=== PATIENT | female | born 1955 | race Caucasian/White ===

== ENCOUNTER 2017-06-25 08:00 | Outpatient (CLI) | payer OTHER | END 2017-06-25 08:01 | disposition home or self-care (01) | LOC: BICMAMMO 08:00 | PROVIDERS: ATTEND Internal Medicine | DX: Z12.31 Encounter for screening mammogram for malignant neoplasm of breast (principal); Z13.820 Encounter for screening for osteoporosis; Z78.0 Asymptomatic menopausal state | CPT/HCPCS: 77067; 77080; G0202 ==

== ENCOUNTER 2017-10-03 08:57 | Emergency (ER) | payer OTHER ==
[2017-10-03 09:43] LABS: Bilirubin Negative (Negative); Blood, Urine Negative (Negative); Clarity CLEAR (Clear); Glucose, Urine (Dipstick) 500 mg/dL (Negative); Leukocyte Negative (Negative); Nitrite Negative (Negative); Protein, Urine (Dipstick) Negative (Neg-Trace); Specific Gravity, Urine 1.027 (1.002-1.036); Urobilinogen 0.2 mg/dL (0.2-1.0)
[2017-10-03 09:47] LABS: #Basophils 0.1 thou/uL (0.0-0.2); #Eosinphils 0.2 thou/uL (0.0-0.7); #Lymphocytes 2.7 thou/uL (1.20-3.40); #Monocytes 0.6 thou/uL (0.11-0.59); #Neutrophils 3.1 thou/uL (1.40-6.50); %Eosinophils 3.3 % (0.0-10.0); %Lymphocytes 40.8 % (21.0-51.0); %Monocytes 8.5 % (0.0-10.0); %Neutrophils 46.4 % (42.0-75.0); Hemoglobin 13.7 g/dL (12.0-16.0); Mean Corpuscular HGB CONC 33.6 g/dL (32.0-36.0); Mean Corpuscular Hemoglobin 31.6 pg (27.0-31.0); Platelet Count 216 thou/uL (130-400); Red Blood Cell (RBC) Count 4.33 mill/uL (4.20-5.40); White Blood Cell (WBC) Count 6.6 thou/uL (4.8-10.8)
[2017-10-03] MEDS ORDERED: HYDROcodone/Acetaminophen 5/325 mg Tablet ONE (09:47)
[2017-10-03 10:09] LABS: ALT (SGPT) 13 U/L (8-55); AST (SGOT) 15 U/L (5-34); Albumin 4.1 g/dL (3.5-5.0); Alkaline Phosphatase 238 U/L (40-150); Anion Gap 13 mmol/L (10-20); BUN (Urea Nitrogen) 23 mg/dL (9.8-20.1); Bilirubin, Total 0.6 mg/dL (0.2-1.2); Calc. Creatinine Clearance 0 mL/min (70-130); Calcium 9.8 mg/dL (7.8-10.44); Carbon Dioxide 24 mmol/L (22-29); Chloride 108 mmol/L (98-107); Estimated GFR-MDRD 39; Globulin 3.3 g/dL (2.4-3.5); Glucose 227 mg/dL (70-105); Potassium 4.6 mmol/L (3.5-5.1); Protein, Total 7.4 g/dL (6.0-8.3); Sodium 140 mmol/L (136-145)
--- NOTE | 2017-10-03 10:35 | RAD ---
THREE VIEWS LUMBAR SPINE: History: Back pain. FINDINGS: AP, lateral, and coned down views of the lumbar spine obtained and demonstrate small anterior osteoph ytes at the L1, L2, L3 and L4 levels. No evidence of lumbar spine fractures or bony lesions are seen. No evidence of giovanni or retrolisthesis seen. IMPRESSION: Changes of spondylosis in the upper and mid lumbar spine. No acute abnormality seen. POS: [facility]
== END 2017-10-03 10:48 | disposition home or self-care (01) ==
LOC: ERS 08:57
DX: E11.22 Type 2 diabetes mellitus with diabetic chronic kidney disease (principal); I12.9 Hypertensive chronic kidney disease with stage 1 through stage 4 chronic kidney disease, or unspecified chronic kidney disease; N18.9 Chronic kidney disease, unspecified; E78.5 Hyperlipidemia, unspecified; Z79.82 Long term (current) use of aspirin; Z79.899 Other long term (current) drug therapy
CPT/HCPCS: 36415; 72100; 80053; 81003; 85025

== ENCOUNTER 2017-11-12 08:54 | Outpatient (CLI) | payer OTHER | END 2017-11-12 08:55 | disposition home or self-care (01) | LOC: BICRAD 08:54 | PROVIDERS: ATTEND Podiatrist | DX: M79.671 Pain in right foot (principal) ==

== ENCOUNTER 2018-06-26 08:44 | Outpatient (CLI) | payer OTHER | END 2018-06-26 08:45 | disposition home or self-care (01) | LOC: BICMAMMO 08:44 | PROVIDERS: ATTEND Internal Medicine | DX: Z12.31 Encounter for screening mammogram for malignant neoplasm of breast (principal); R92.1 Mammographic calcification found on diagnostic imaging of breast | CPT/HCPCS: 77063; 77067 ==

== ENCOUNTER 2019-08-05 11:40 | Outpatient (CLI) | payer OTHER ==
--- NOTE | 2019-08-05 13:15 | MMO ---
Bilateral MAMMO Bilat Screen [facility]. CLINICAL HISTORY: Patient is 64 years old and is seen for screening. The patient has the following family history of breast cancer: mother, at age 84, malignant (generic). The patient has no personal history of cancer. VIEWS: The views performed were: bilateral craniocaudal with tomosynthesis and bilateral mediolateral oblique with tomosynthesis. FILMS COMPARED: The present examination has been compared to prior imaging studies performed at [facility] on 12/10/2007, 08/28/2011, 06/25/2017 and 06/26/2018. This study has been interpreted with the assistance of computer-aided detection. MAMMOGRAM FINDINGS: There are scattered fibroglandular densities. There are stable benign appearing calcifications seen in both breasts. There are no suspicious masses, suspicious calcifications, or new areas of architectural distortion. IMPRESSION: THERE IS NO MAMMOGRAPHIC EVIDENCE OF MALIGNANCY. A ROUTINE FOLLOW-UP MAMMOGRAM IN 1 YEAR IS RECOMMENDED. THE RESULTS OF THIS EXAM WERE SENT TO THE PATIENT. ACR BI-RADS Category 2 - Benign finding MAMMOGRAPHY NOTE: 1. A negative mammogram report should not delay a biopsy if a dominant of clinically suspicious mass is present. 2. Approximately 10% to 15% of breast cancers are not detected by mammography. 3. Adenosis and dense breasts may obscure an underlying neoplasm. Reported by: CLARISSA MARIN MD Electonically Signed: [id number]
== END 2019-08-05 11:41 | disposition home or self-care (01) ==
LOC: BICMAMMO 11:40
PROVIDERS: ATTEND Internal Medicine
DX: Z12.31 Encounter for screening mammogram for malignant neoplasm of breast (principal); Z80.3 Family history of malignant neoplasm of breast
CPT/HCPCS: 77063; 77067

== ENCOUNTER 2019-08-08 13:59 | Outpatient (CLI) | payer OTHER ==
--- NOTE | 2019-08-08 14:28 | ULT ---
Exam: Bilateral renal ultrasound HISTORY: Hypertension. COMPARISON: None FINDINGS: Right kidney: Normal cortical echotexture. No hydronephrosis. Right kidney measurements: 9.8 x 4.2 x 4.8 cm. Left kidney: Normal cortical echotexture. No hydronephrosis. Exophytic anechoic focus emanating from the lower pole left kidney compatible with a 2.6 x 2.7 x 3.2 cm cyst. Left kidney measurements 4.9 x 10.9 x 5.0 cm. Urinary bladder: Normal mucosa. Bilateral ureteral jets are identified. IMPRESSION: No hydronephrosis.
== END 2019-08-08 14:00 | disposition home or self-care (01) ==
LOC: BICULT 13:59
PROVIDERS: ATTEND Internal Medicine Nephrology
DX: I12.9 Hypertensive chronic kidney disease with stage 1 through stage 4 chronic kidney disease, or unspecified chronic kidney disease (principal); N18.3 Chronic kidney disease, stage 3 (moderate)
CPT/HCPCS: 76770

== ENCOUNTER 2020-07-22 08:09 | Outpatient (CLI) | payer OTHER ==
[2020-07-22 15:06] LABS: #Eosinphils 0.3 10x3/uL (0.0-0.5); #Monocytes 0.6 10x3/uL (0.0-1.1); #Neutrophils 2.5 10x3/uL (1.5-8.4); %Basophils 0.7 % (0.0-2.0); %Eosinophils 4.8 % (0.0-6.0); %Lymphocytes 43.8 % (18.0-47.0); %Monocytes 9.6 % (0.0-10.0); %Neutrophils 40.9 % (40.0-75.0); Hemoglobin 14.4 g/dL (12.0-16.0); Mean Corpuscular HGB CONC 31.5 G/DL (32.0-36.0); Mean Corpuscular Hemoglobin 30.9 PG (27.0-33.0); Mean Corpuscular Volume 98.1 fl (80.0-100.0); Mean Platelet Volume 10.3 fl (7.4-10.4); Platelet Count 197 10x3/uL (130-400); RBC Distribution Width 13.2 % (11.5-14.5); Red Blood Cell (RBC) Count 4.66 10x6/uL (3.90-5.20); White Blood Cell (WBC) Count 6.1 10x3/uL (4.5-11.0)
[2020-07-22 15:12] LABS: Anion Gap 13 mmol/L (10-20); BUN (Urea Nitrogen) 27 mg/dL (9.8-20.1); Calc. Creatinine Clearance 0 mL/min (70-130); Calcium 9.4 mg/dL (7.8-10.44); Carbon Dioxide 24 mmol/L (23-31); Chloride 106 mmol/L (98-107); Glucose 257 mg/dL (80-115); Potassium 4.4 mmol/L (3.5-5.1); Sodium 139 mmol/L (136-145)
[2020-07-23 02:11] LABS: SARS-CoV-2 MS2 Positive; SARS-CoV-2 N Gene Negative; SARS-CoV-2 S Gene Negative; SARS-CoV-2 by NAA Not Detected (NotDetected); SARS-CoV-2 orf1ab Negative
== END 2020-07-22 08:10 | disposition home or self-care (01) ==
LOC: LABBT 08:09
PROVIDERS: ATTEND Orthopaedic Surgery
DX: Z01.818 Encounter for other preprocedural examination (principal); M75.101 Unspecified rotator cuff tear or rupture of right shoulder, not specified as traumatic; Z20.828 Contact with and (suspected) exposure to other viral communicable diseases
CPT/HCPCS: 80048; 85025; 87635; 93005; 93010; U0003

== ENCOUNTER 2020-07-27 06:55 | Day surgery (SDC) | payer OTHER ==
[2020-07-26 10:08] VITALS: BMI 41.0
[2020-07-27] MEDS ORDERED: Fentanyl 100 MCG/2 ML VIAL ONE ×2 (08:28→13:05)
[2020-07-27] MEDS ORDERED: Midazolam HCl 2 mg/2 ml Vial ONE ×2 (08:28→10:33)
[2020-07-27] MEDS ORDERED: Fentanyl 100 MCG/2 ML VIAL IV PRN (09:27)
[2020-07-27] MEDS ORDERED: traMADol HCl 50 MG TAB PO PRN ×2 (09:30)
[2020-07-27] MEDS ORDERED: Ropivacaine 0.2% 550 ML 550 ML NERVE BLCK SCH (09:30)
[2020-07-27] MEDS ORDERED: Promethazine HCl 25 MG/ML VIAL IM PRN (09:30)
[2020-07-27] MEDS ORDERED: Zolpidem Tartrate 5 MG TAB PO PRN (09:30)
[2020-07-27] MEDS ORDERED: Ondansetron PF 4 MG/2 ML Vial IVP PRN (09:30)
[2020-07-27] MEDS ORDERED: HYDROcodone/Acetaminophen 10/325 mg Tablet PO PRN ×2 (09:30)
[2020-07-27] MEDS ORDERED: Fentanyl 250 MCG/5 ML VIAL ONE (10:33)
[2020-07-27] MEDS ORDERED: Famotidine/PF 20 mg/2ml Vial ONE (10:33)
[2020-07-27] MEDS ORDERED: Scopolamine 1.5 mg/72 hour Patch ONE (10:34)
[2020-07-27] MEDS ORDERED: Ropivacaine 0.5% HCl/PF (150 MG/30 ML VIAL) ONE (10:45)
[2020-07-27] MEDS ORDERED: PHENYLEPHRINE-NS 100 MCG/ML 10 ML SYRINGE ONE (10:45)
[2020-07-27] MEDS ORDERED: Lidocaine 1% PF 5 ML VIAL ONE (10:45)
[2020-07-27] MEDS ORDERED: Ondansetron PF 4 MG/2 ML Vial ONE ×2 (10:45→13:30)
[2020-07-27] MEDS ORDERED: Rocuronium Bromide 10 MG/ML (10ML VIAL) ONE (10:45)
[2020-07-27] MEDS ORDERED: Dexamethasone 20 MG/5 ML VIAL ONE (10:45)
[2020-07-27] MEDS ORDERED: Esmolol 100 MG/10 ML VIAL ONE (10:45)
[2020-07-27] MEDS ORDERED: Succinylcholine 200 MG/10 ml SYRINGE FS ONE (10:45)
[2020-07-27] MEDS ORDERED: PROPOFOL 200 MG/20 ML VIAL ONE (10:45)
[2020-07-27] MEDS ORDERED: Promethazine HCl 25 MG/ML VIAL ONE ×2 (13:27→14:17)
--- NOTE | 2020-07-27 13:30 | OP ---
DATE OF PROCEDURE: 07/27/2020 PREOPERATIVE DIAGNOSIS: Rotator cuff tear, right shoulder. POSTOPERATIVE DIAGNOSIS: Rotator cuff tear, right shoulder. PROCEDURES PERFORMED: Open acromioplasty and rotator cuff repair. BUILDING OPERATOR: Honorio Uribe PA-C BLOOD LOSS: Minimal. SPECIMEN: None. DRAINS: None. COMPLICATIONS: None. The care management assistant/co-surgeon was present through the entire procedure and was responsible for providing exposure, tissue retraction and any necessary limb or tissue manipulation required to obtain necessary reduction or hardware placement. The care management assistant/co-surgeon also provided bleeding control, tissue closure, and suturing in conjunction with the primary surgeon. DESCRIPTION OF PROCEDURE: The patient placed in a beach chair position. Right arm was prepped and draped in the usual sterile fashion. I made a standard deltoid-splitting approach. An anterior-inferior acromioplasty performed, bursa tissue was excised, greatly retracted rotator cuff. I placed traction stitches and mobilized the cuff. Broke up adhesions and was able to fix the cuff at the margin of the articular cartilage. I scraped the greater tuberosity and articular cartilage margin to get bleeding bone. I placed 3 suture anchors through this area, passed 6 sutures and tied them down with a good watertight repair and reinforced with a double row repair using self punching [place]ocks. Irrigation was performed. Deltoid was repaired back to bone with #1 Ethibond suture. Subcu closed with 2-0 Vicryl, skin was closed with holly. There were no complications. Job ID: [id number]
== END 2020-07-27 18:00 | disposition home or self-care (01) ==
LOC: SDC 06:55
PROVIDERS: ATTEND Orthopaedic Surgery
PROC: 0LQ10ZZ Repair Right Shoulder Tendon, Open Approach (ICD-10-PCS; principal; 2020-07-27)
DX: S46.011A Strain of muscle(s) and tendon(s) of the rotator cuff of right shoulder, initial encounter (principal); M19.011 Primary osteoarthritis, right shoulder; I10 Essential (primary) hypertension; E11.9 Type 2 diabetes mellitus without complications; Z79.4 Long term (current) use of insulin; Z79.899 Other long term (current) drug therapy; W19.XXXA Unspecified fall, initial encounter
CPT/HCPCS: A4306; C1713; J0690; J1100; J2250; J2405; J2550; J2704; J2795; J3010; S0028

== ENCOUNTER 2021-04-07 07:46 | Outpatient (CLI) | payer BC | END 2021-04-07 07:47 | disposition home or self-care (01) | LOC: BICMAMMO 07:46 | PROVIDERS: ATTEND Obstetrics & Gynecology | DX: Z13.820 Encounter for screening for osteoporosis (principal) | CPT/HCPCS: 77080 ==

== ENCOUNTER 2022-12-31 13:04 | Observation (INO) | payer MEDICARE, OTHER ==
[2022-12-31] MEDS ORDERED: Morphine 4 MG/ML VIAL ONE (13:59)
[2022-12-31] MEDS ORDERED: Ondansetron ODT 4 MG TAB ONE ×2 (13:59→15:21)
[2022-12-31 15:02] LABS: #Basophils 0.1 thou/uL (0.0-0.2); #Eosinphils 0.1 thou/uL (0.0-0.7); #Monocytes 0.6 thou/uL (0.11-0.59); #Neutrophils 6.7 thou/uL (1.40-6.50); %Basophils 0.5 % (0.0-1.0); %Eosinophils 0.8 % (0.0-10.0); %Lymphocytes 23.3 % (21.0-51.0); %Monocytes 5.8 % (0.0-10.0); %Neutrophils 69.3 % (42.0-75.0); Hemoglobin 15.4 g/dL (12.0-16.0); Mean Corpuscular HGB CONC 31.8 g/dL (32.0-36.0); Mean Corpuscular Hemoglobin 31.6 pg (27.0-31.0); Mean Corpuscular Volume 99.2 fl (78.0-98.0); Mean Platelet Volume 10.6 fL (7.4-10.4); Platelet Count 213 10x3/uL (130-400); RBC Distribution Width 13.4 % (11.5-14.5); Red Blood Cell (RBC) Count 4.88 mill/uL (4.20-5.40); White Blood Cell (WBC) Count 9.7 10x3/uL (4.8-10.8)
[2022-12-31] MEDS ORDERED: Ondansetron PF 4 MG/2 ML Vial ONE ×2 (15:20→15:22)
[2022-12-31 15:25] LABS: ALT (SGPT) 15 U/L (8-55); AST (SGOT) 17 U/L (5-34); Albumin 4.4 g/dL (3.4-4.8); Alkaline Phosphatase 184 U/L (40-110); Anion Gap 15 mmol/L (10-20); BUN (Urea Nitrogen) 37 mg/dL (9.8-20.1); Bilirubin, Total 0.7 mg/dL (0.2-1.2); Calc. Creatinine Clearance 0 mL/min (70-130); Calcium 10.1 mg/dL (7.8-10.44); Carbon Dioxide 20 mmol/L (23-31); Chloride 111 mmol/L (98-107); Estimated GFR 33; Globulin 3.5 g/dL (2.4-3.5); Glucose 153 mg/dL (80-115); Potassium 4.5 mmol/L (3.5-5.1); Protein, Total 7.9 g/dL (5.8-8.1); Sodium 141 mmol/L (136-145)
[2022-12-31] MEDS ORDERED: HumaLOG 300 UNITS/3 ML VIAL SC PRN (15:37)
[2022-12-31] MEDS ORDERED: Dextrose 5% in Water 1,000 ML IV PRN (15:37)
[2022-12-31] MEDS ORDERED: Dextrose 50% Abboject 50 ML SYRINGE SLOW IVP PRN (15:37)
[2022-12-31] MEDS ORDERED: Glucagon 1 MG/ML KIT IM PRN (15:37)
[2022-12-31] MEDS ORDERED: TETANUS, DIPHTHERIA TOX,ADULT (TDVAX) 0.5 ML VIAL IM ONE (15:37)
[2022-12-31] MEDS ORDERED: Morphine 2 MG/ML VIAL SLOW IVP PRN (15:44)
[2022-12-31] MEDS: Ferrous Sulfate 325 MG TAB PO SCH (17:35)
[2022-12-31] MEDS: Acetaminophen 325 MG TAB PO SCH (17:36)
[2022-12-31] MEDS: traMADol HCl 50 MG TAB PO SCH (17:36)
[2022-12-31] MEDS: Cyclobenzaprine 10 MG TAB PO PRN (21:24)
[2022-12-31] MEDS: Ondansetron PF 4 MG/2 ML Vial IVP PRN (21:27)
[2022-12-31] MEDS ORDERED: Lactated Ringer's 1,000 ML IV SCH (23:59)
[2023-01-01] MEDS: traMADol HCl 50 MG TAB PO SCH ×4 (00:38→18:14)
[2023-01-01] MEDS: Acetaminophen 325 MG TAB PO SCH ×4 (00:38→18:14)
[2023-01-01] MEDS: traMADol HCl 50 MG TAB PO PRN ×2 (05:24→20:44)
[2023-01-01] MEDS: Ascorbic Acid 500 mg Chewable Tablet PO SCH (08:41)
[2023-01-01] MEDS: Ferrous Sulfate 325 MG TAB PO SCH ×2 (08:41→18:14)
[2023-01-01] MEDS: Famotidine 20 MG TAB PO SCH (08:41)
[2023-01-01] MEDS ORDERED: Vancomycin 1 GM VIAL ONE (14:43)
[2023-01-01] MEDS ORDERED: Sodium Chloride 0.9% 100 ML ONE (14:49)
[2023-01-01] MEDS ORDERED: CEFAZOLIN 2 GM VIAL ONE (14:49)
[2023-01-01] MEDS ORDERED: fentaNYL 50 mcg/mL 1 mL Vial ONE ×5 (14:57→17:22)
[2023-01-01] MEDS ORDERED: Lidocaine 1% PF 5 ML VIAL ONE (15:17)
[2023-01-01] MEDS ORDERED: GLYCOPYRROLATE/PF 0.2 MG/ML VIAL ONE (15:17)
[2023-01-01] MEDS ORDERED: Rocuronium Bromide 10 MG/ML (10ML VIAL) ONE (15:17)
[2023-01-01] MEDS ORDERED: PROPOFOL 200 MG/20 ML VIAL ONE (15:17)
[2023-01-01] MEDS ORDERED: Ondansetron PF 4 MG/2 ML Vial ONE (15:17)
[2023-01-01] MEDS ORDERED: NEOSTIGMINE 3 MG/3 ML SYR 3 MG/3 ML SYRINGE ONE (15:17)
[2023-01-01] MEDS ORDERED: SUGAMMADEX SODIUM 200 MG/2 ML VIAL ONE (16:19)
[2023-01-01] MEDS ORDERED: Promethazine HCl 25 MG/ML VIAL IM PRN (16:32)
[2023-01-01] MEDS ORDERED: Ondansetron HCl/PF 4 MG/2 ML Vial IVP PRN (16:32)
[2023-01-01] MEDS: Cyclobenzaprine 10 MG TAB PO PRN (20:44)
[2023-01-01] MEDS: Ondansetron PF 4 MG/2 ML Vial IVP PRN (20:44)
[2023-01-02] MEDS: traMADol HCl 50 MG TAB PO SCH ×3 (00:49→11:46)
[2023-01-02] MEDS: Acetaminophen 325 MG TAB PO SCH ×3 (00:51→11:45)
[2023-01-02 06:26] LABS: #Neutrophils 6.6 thou/uL (1.40-6.50); %Basophils 0.3 % (0.0-1.0); %Eosinophils 0.4 % (0.0-10.0); %Lymphocytes 22.6 % (21.0-51.0); %Monocytes 10.1 % (0.0-10.0); %Neutrophils 66.4 % (42.0-75.0); Hemoglobin 13.7 g/dL (12.0-16.0); Mean Corpuscular HGB CONC 31.7 g/dL (32.0-36.0); Mean Corpuscular Hemoglobin 31.1 pg (27.0-31.0); Mean Corpuscular Volume 98.2 fl (78.0-98.0); Mean Platelet Volume 10.8 fL (7.4-10.4); Platelet Count 167 10x3/uL (130-400); RBC Distribution Width 13.3 % (11.5-14.5); White Blood Cell (WBC) Count 9.9 10x3/uL (4.8-10.8)
[2023-01-02 06:52] LABS: Anion Gap 10 mmol/L (10-20); BUN (Urea Nitrogen) 24 mg/dL (9.8-20.1); Calc. Creatinine Clearance 77 mL/min (70-130); Calcium 9.4 mg/dL (7.8-10.44); Carbon Dioxide 23 mmol/L (23-31); Chloride 111 mmol/L (98-107); Estimated GFR 41; Glucose 98 mg/dL (80-115); Magnesium 1.8 mg/dL (1.6-2.6); Phosphorus 2.3 mg/dL (2.3-4.7); Potassium 4.1 mmol/L (3.5-5.1); Sodium 140 mmol/L (136-145)
[2023-01-02 08:05] VITALS: TEMP 98.1
[2023-01-02] MEDS: Ferrous Sulfate 325 MG TAB PO SCH (09:16)
[2023-01-02] MEDS: Famotidine 20 MG TAB PO SCH (09:16)
[2023-01-02] MEDS: Ascorbic Acid 500 mg Chewable Tablet PO SCH (09:17)
[2023-01-02 12:00] VITALS: BP 141/82
== END 2023-01-02 15:15 | disposition home or self-care (01) ==
LOC: ERS 13:04 → SURG A 16:40
PROVIDERS: ADMIT Surgery; ATTEND Surgery
PROC: 0PSK06Z Reposition Right Ulna with Intramedullary Internal Fixation Device, Open Approach (ICD-10-PCS; principal; 2022-12-31)
PROC: 0PSH04Z Reposition Right Radius with Internal Fixation Device, Open Approach (ICD-10-PCS; 2022-12-31)
DX: S52.121A Displaced fracture of head of right radius, initial encounter for closed fracture (principal); S52.031A Displaced fracture of olecranon process with intraarticular extension of right ulna, initial encounter for closed fracture; N18.30 Chronic kidney disease, stage 3 unspecified; I12.9 Hypertensive chronic kidney disease with stage 1 through stage 4 chronic kidney disease, or unspecified chronic kidney disease; E11.22 Type 2 diabetes mellitus with diabetic chronic kidney disease; E78.5 Hyperlipidemia, unspecified; E66.9 Obesity, unspecified; Z90.49 Acquired absence of other specified parts of digestive tract; Z79.82 Long term (current) use of aspirin; Z79.899 Other long term (current) drug therapy; Z79.4 Long term (current) use of insulin; W01.0XXA Fall on same level from slipping, tripping and stumbling without subsequent striking against object, initial encounter; Z68.41 Body mass index [BMI] 40.0-44.9, adult
CPT/HCPCS: 24665; 24685; 71045; 73060; 73070 ×2; 73090; 80048; 80053; 82962 ×2; 83735; 84100; 85025 ×2; 96376 ×2; C1713 ×2; C1769; G0378 ×4; J3010; J3490; 36415; 36416; J1815; J2270; J2405; J2704; J3370; J7120; Q0162

== ENCOUNTER 2023-02-21 07:57 | Outpatient (CLI) | payer MEDICARE ==
[2023-02-21 09:21] LABS: #Eosinphils 0.2 10x3/uL (0.0-0.5); #Monocytes 0.7 10x3/uL (0.0-1.1); %Basophils 0.6 % (0.0-2.0); %Eosinophils 2.8 % (0.0-6.0); %Lymphocytes 44.3 % (18.0-47.0); %Monocytes 9.4 % (0.0-10.0); %Neutrophils 42.8 % (40.0-75.0); Hemoglobin 14.8 g/dL (12.0-15.5); Mean Corpuscular HGB CONC 31.8 g/dL (32.0-36.0); Mean Corpuscular Hemoglobin 30.7 pg (27.0-33.0); Mean Corpuscular Volume 96.5 fl (81.6-98.3); Mean Platelet Volume 10.3 fl (7.4-10.4); Platelet Count 186 10x3/uL (150-450); RBC Distribution Width 13.8 % (11.5-14.5); Red Blood Cell (RBC) Count 4.82 10x6/uL (3.90-5.03); White Blood Cell (WBC) Count 7.1 10x3/uL (3.5-10.5)
[2023-02-21 09:28] LABS: Anion Gap 15 mmol/L (10-20); BUN (Urea Nitrogen) 28 mg/dL (9.8-20.1); Calc. Creatinine Clearance 0 mL/min (70-130); Calcium 9.2 mg/dL (7.8-10.44); Carbon Dioxide 24 mmol/L (23-31); Chloride 107 mmol/L (98-107); Estimated GFR 42; Glucose 83 mg/dL (80-115); Potassium 4.1 mmol/L (3.5-5.1); Sodium 142 mmol/L (136-145)
[2023-02-21 09:29] LABS: Prothrombin Time 10.3 sec (9.5-12.1)
== END 2023-02-21 07:58 | disposition home or self-care (01) ==
LOC: LABBT 07:57
PROVIDERS: ATTEND Orthopaedic Surgery
DX: Z01.818 Encounter for other preprocedural examination (principal); M17.11 Unilateral primary osteoarthritis, right knee
CPT/HCPCS: 80048; 85025; 85610; 87081; 93005; 93010

== ENCOUNTER 2023-02-27 05:43 | Observation (INO) | payer MEDICARE ==
[2023-02-27] MEDS ORDERED: Sodium Chloride 0.9% 100 ML ONE ×2 (05:57→06:58)
[2023-02-27] MEDS ORDERED: Tranexamic Acid 1,000 MG/10 ML VIAL ONE (05:57)
[2023-02-27] MEDS ORDERED: VANCOMYCIN 2 GRAM/500 ML BAG 2 GM in Premix Bag 1 BAG IVPB SCH (06:00)
[2023-02-27] MEDS ORDERED: Bupivacaine PF 0.5% 30 ML VIAL ONE ×2 (06:20→06:35)
[2023-02-27] MEDS ORDERED: Midazolam HCl 2 mg/2 ml Vial ONE (06:35)
[2023-02-27] MEDS ORDERED: Lidocaine 1% (PF) 30 ML VIAL ONE (06:35)
[2023-02-27] MEDS ORDERED: fentaNYL 50 mcg/mL 1 mL Vial ONE ×3 (06:35→10:09)
[2023-02-27] MEDS ORDERED: CEFAZOLIN 2 GM VIAL ONE (06:58)
[2023-02-27] MEDS ORDERED: fentaNYL PF 100 MCG/2 ML SYRINGE ONE (07:05)
[2023-02-27] MEDS ORDERED: traMADol HCl 50 MG TAB PO PRN ×2 (07:15)
[2023-02-27] MEDS ORDERED: HYDROcodone/Acetaminophen 5/325 mg Tablet PO PRN (07:15)
[2023-02-27] MEDS ORDERED: fentaNYL 50 mcg/mL 1 mL Vial SLOW IVP PRN (07:15)
[2023-02-27] MEDS ORDERED: Zolpidem Tartrate 5 MG TAB PO PRN ×2 (07:15→08:45)
[2023-02-27] MEDS ORDERED: Ropivacaine 0.2% 550 ML 550 ML NERVE BLCK SCH (07:15)
[2023-02-27] MEDS ORDERED: Promethazine HCl 25 MG/ML VIAL IM PRN ×3 (07:15→10:23)
[2023-02-27] MEDS ORDERED: Ondansetron PF 4 MG/2 ML Vial IVP PRN ×2 (07:15→08:45)
[2023-02-27] MEDS ORDERED: Metoclopramide HCl 10 MG/2 ML VIAL ONE (07:21)
[2023-02-27] MEDS ORDERED: PHENYLEPHRINE-NS 100 MCG/ML 10 ML SYRINGE ONE (07:21)
[2023-02-27] MEDS ORDERED: diphenhydrAMINE 50 MG/ML VIAL ONE (07:21)
[2023-02-27] MEDS ORDERED: Bupivacaine HCl 0.5%/Epinephrine 1:200,000/PF 30 ml Vial ONE (07:21)
[2023-02-27] MEDS ORDERED: PROPOFOL 200 MG/20 ML VIAL ONE (07:21)
[2023-02-27] MEDS ORDERED: Lidocaine 1% PF 5 ML VIAL ONE (07:21)
[2023-02-27] MEDS ORDERED: Ondansetron PF 4 MG/2 ML Vial ONE (07:21)
[2023-02-27] MEDS ORDERED: diphenhydrAMINE 25 MG CAP PO PRN (08:45)
[2023-02-27] MEDS ORDERED: HYDROcodone/Acetaminophen 10/325 mg Tablet PO PRN ×2 (08:45)
[2023-02-27] MEDS ORDERED: Acetaminophen 325 MG TAB PO PRN (08:45)
[2023-02-27] MEDS ORDERED: Meperidine HCl/PF 25 MG/ML VIAL ONE (08:47)
[2023-02-27] MEDS ORDERED: Aspirin 81 mg Enteric Coated Tablet PO SCH (09:00)
[2023-02-27] MEDS ORDERED: Non-Formulary Item 1 EACH (Magnesium Oxide [Magnesium] 400 MG Capsule) PO SCH (09:00)
[2023-02-27] MEDS ORDERED: Non-Formulary Item 1 EACH (Insulin Degludec [Tresiba Flextouch U-100] 100 UNIT/ML Insuln. SC SCH (09:00)
[2023-02-27] MEDS ORDERED: Non-Formulary Item 1 EACH (Losartan Potassium [Losartan Potassium] 50 MG Tablet) PO SCH (09:00)
[2023-02-27] MEDS ORDERED: glyBURIDE 5 MG TAB PO SCH (09:00)
[2023-02-27] MEDS ORDERED: Non-Formulary Item 1 EACH (Dapagliflozin Propanediol [Farxiga] 10 MG Tablet) PO SCH (09:00)
[2023-02-27] MEDS ORDERED: HYDROmorphone 0.5 MG/0.5 ML SYRINGE ONE ×2 (09:41→09:53)
[2023-02-27] MEDS ORDERED: Meperidine HCl/PF 25 MG/ML VIAL SLOW IVP PRN (10:23)
[2023-02-27] MEDS ORDERED: HYDROmorphone 2 MG/ML VIAL SLOW IVP PRN (10:23)
[2023-02-27] MEDS ORDERED: Ondansetron HCl/PF 4 MG/2 ML Vial IVP PRN (10:23)
[2023-02-27] MEDS: Senokot S 8.6-50 MG TAB PO SCH ×2 (10:39→21:08)
[2023-02-27] MEDS: Aspirin 81 mg Enteric Coated Tablet PO SCH ×2 (10:39→21:09)
[2023-02-27] MEDS: Calcitriol 0.25 MCG CAP PO SCH (10:40)
[2023-02-27] MEDS: Multivitamin W/ Minerals 1 TAB PO SCH (10:40)
[2023-02-27] MEDS: Sodium Chloride 0.9% 1,000 ML IV SCH ×2 (10:40→18:55)
[2023-02-27] MEDS: Atorvastatin Calcium 10 MG TAB PO SCH (10:40)
[2023-02-27] MEDS: Ferrous Gluconate 324 MG TAB PO SCH ×2 (10:41→21:09)
[2023-02-27 10:47] VITALS: BMI 43.0
[2023-02-27] MEDS: HYDROcodone/Acetaminophen 5/325 mg Tablet PO PRN ×2 (11:42→15:58)
[2023-02-27] MEDS: Ketorolac Tromethamine 30 MG/ML VIAL IVP SCH ×2 (13:55→21:10)
[2023-02-27] MEDS: CEFAZOLIN 2 GM in Sodium Chloride 0.9% 100 ML IVPB SCH ×2 (13:55→21:10)
[2023-02-27] MEDS: Magnesium Oxide 400 MG TAB PO SCH (21:08)
[2023-02-27] MEDS: glyBURIDE 5 MG TAB PO SCH (21:09)
[2023-02-27] MEDS: Losartan 25 MG TAB PO SCH (21:09)
[2023-02-28 05:05] LABS: Hematocrit 40.7 % (36.0-47.0); Hemoglobin 12.6 g/dL (12.0-16.0); Mean Corpuscular Hemoglobin 31.3 pg (27.0-31.0); Mean Platelet Volume 10.5 fL (7.4-10.4); Platelet Count 157 10x3/uL (130-400); RBC Distribution Width 14.3 % (11.5-14.5); Red Blood Cell (RBC) Count 4.03 mill/uL (4.20-5.40); White Blood Cell (WBC) Count 7.2 10x3/uL (4.8-10.8)
[2023-02-28] MEDS: Ketorolac Tromethamine 30 MG/ML VIAL IVP SCH (05:24)
[2023-02-28] MEDS: Sodium Chloride 0.9% 1,000 ML IV SCH (05:28)
[2023-02-28] MEDS ORDERED: Insulin Glargine 30 UNITS/0.3 ML VIAL SC SCH (09:00)
[2023-02-28] MEDS ORDERED: Empagliflozin 10 MG TAB PO SCH (09:00)
[2023-02-28] MEDS: Multivitamin W/ Minerals 1 TAB PO SCH (09:10)
[2023-02-28] MEDS: glyBURIDE 5 MG TAB PO SCH (09:10)
[2023-02-28] MEDS: Atorvastatin Calcium 10 MG TAB PO SCH (09:10)
[2023-02-28] MEDS: Ferrous Gluconate 324 MG TAB PO SCH (09:11)
[2023-02-28] MEDS: Aspirin 81 mg Enteric Coated Tablet PO SCH (09:11)
[2023-02-28] MEDS: Calcitriol 0.25 MCG CAP PO SCH (09:11)
[2023-02-28] MEDS: Losartan 25 MG TAB PO SCH (09:11)
[2023-02-28] MEDS: Senokot S 8.6-50 MG TAB PO SCH (09:11)
[2023-02-28] MEDS: Magnesium Oxide 400 MG TAB PO SCH (09:11)
[2023-02-28 09:42] VITALS: BP 146/78; TEMP 98.4
== END 2023-02-28 12:10 | disposition home or self-care (01) ==
LOC: SDC 05:43 → SURG B 08:45
PROVIDERS: ADMIT Orthopaedic Surgery; ATTEND Orthopaedic Surgery
PROC: 0SRC0JZ Replacement of Right Knee Joint with Synthetic Substitute, Open Approach (ICD-10-PCS; principal; 2023-02-27)
DX: M17.11 Unilateral primary osteoarthritis, right knee (principal); I10 Essential (primary) hypertension; E11.9 Type 2 diabetes mellitus without complications; E78.00 Pure hypercholesterolemia, unspecified; Z79.82 Long term (current) use of aspirin; Z79.84 Long term (current) use of oral hypoglycemic drugs; Z79.899 Other long term (current) drug therapy
CPT/HCPCS: 27447; 73560; 82962; 85027; 96365; 96375; 96376 ×2; 97110 ×2; 97116 ×2; 97530; A4306; C1776; G0378 ×2; J3010; J3370; 36415; 36416; J1170; J1200; J1815; J1885; J2001; J2175; J2250; J2405; J2704; J2765; J2795; J3490; J7050; S0020

== ENCOUNTER 2023-06-22 14:09 | Emergency (ER) | payer MEDICARE ==
[2023-06-22] MEDS ORDERED: methylPREDNISolone Sod Succ/PF 125 MG/2 ML VIAL ONE (15:21)
[2023-06-22] MEDS ORDERED: Ipratropium/Albuterol 3 ML NEB ONE (15:26)
[2023-06-22 16:20] LABS: SARS-CoV-2 NAA Rapid Test Not Detected (NotDetected)
== END 2023-06-22 17:29 | disposition home or self-care (01) ==
LOC: ERS 14:09
DX: J20.9 Acute bronchitis, unspecified (principal); J31.0 Chronic rhinitis; I10 Essential (primary) hypertension; E11.9 Type 2 diabetes mellitus without complications; Z20.822 Contact with and (suspected) exposure to COVID-19; Z79.4 Long term (current) use of insulin
CPT/HCPCS: 0240U; 71045; 87081; 87430; 94640; 96372; J2930; J7620

== ENCOUNTER 2023-08-15 08:15 | Outpatient (CLI) | payer MEDICARE | END 2023-08-15 08:16 | disposition home or self-care (01) | LOC: BICMRI 08:15 | PROVIDERS: ATTEND Orthopaedic Surgery | DX: M75.122 Complete rotator cuff tear or rupture of left shoulder, not specified as traumatic (principal); S46.812A Strain of other muscles, fascia and tendons at shoulder and upper arm level, left arm, initial encounter; S43.432A Superior glenoid labrum lesion of left shoulder, initial encounter; M62.522 Muscle wasting and atrophy, not elsewhere classified, left upper arm; M67.814 Other specified disorders of tendon, left shoulder ==

== ENCOUNTER 2023-12-21 08:23 | Outpatient (CLI) | payer MEDICARE | END 2023-12-21 08:24 | disposition home or self-care (01) | LOC: BICMAMMO 08:23 | PROVIDERS: ATTEND Nurse Practitioner Family | DX: Z13.820 Encounter for screening for osteoporosis (principal); M85.851 Other specified disorders of bone density and structure, right thigh | CPT/HCPCS: 77080 ==